=== PATIENT | female | born 1970 | race African-American/Black ===

== ENCOUNTER 2022-05-06 11:41 | Emergency (ER) | payer OTHER ==
[~2022-05-06] VITALS: Ht 170.2 cm; Wt 59.9 kg
[2022-05-06 11:55] VITALS: BP 179/105
--- NOTE | 2022-05-06 11:58 | NUR ---
PATIENT AMBULATED TO BED 9
[2022-05-06] MEDS ORDERED: ALBUTEROL SULFATE/IPRATROPIU 3 ML SOL IH ONE (12:25)
[2022-05-06 12:48] LABS: BASOPHILS % (AUTO) 0.9 % (0.0-2.0); EOSINOPHILS # (AUTO) 0.3 K/uL (0-0.4); EOSINOPHILS % (AUTO) 9.9 % (0.0-4.0); HEMATOCRIT 40.5 % (36-48); HEMOGLOBIN 13.4 g/dL (12.0-16.0); LYMPHOCYTES % (AUTO) 34.8 % (20.5-51.1); MEAN CORPUSCULAR HEMOGLOBIN 28 pg (27-31); MEAN CORPUSCULAR HGB CONC 33 g/dL (33-37); MEAN CORPUSCULAR VOLUME 85.5 fL (80-94); MONOCYTES # (AUTO) 0.3 K/uL (0.8-1.0); MONOCYTES % (AUTO) 9.7 % (1.7-9.3); NEUTROPHILS # (AUTO) 1.2 K/uL (1.8-7.7); NEUTROPHILS % (AUTO) 44.7 % (42.2-75.2); PLATELET COUNT (AUTO) 317 K/uL (140-450); RED BLOOD CELL COUNT(AUTO) 4.74 MIL/uL (4.20-5.40); RED CELL DISTRIBUTION WIDTH 14.5 % (11.6-13.7); WHITE BLOOD COUNT (AUTO) 2.8 K/uL (4.8-10.8)
[2022-05-06 13:05] LABS: ALBUMIN 3.4 g/dL (3.4-5.0); ANION GAP 14.3 (8-16); ASPARTATE AMINOTRANSFERASE 23 U/L (15-37); CARBON DIOXIDE 31.5 mmol/L (21-32); CHLORIDE 101 mmol/L (98-107); GFR ARICAN-AMERICAN 75 mL/min (>90); GLUCOSE 94 mg/dL (74-106); LIPASE 116 U/L (73-393); SODIUM SERUM 144 mmol/L (136-145); TOTAL BILIRUBIN 1.2 mg/dL (0.0-1.0); UREA NITROGEN, BLOOD 10 mg/dL (7-18)
[2022-05-06 13:07] LABS: POTASSIUM 2.8 mmol/L (3.5-5.1)
[2022-05-06] MEDS ORDERED: POTASSIUM CHLORIDE 10 MEQ TABER PO ONE ×2 (13:10→14:25)
[2022-05-06] MEDS ORDERED: MORPHINE SULFATE 4 MG/ML SYR IM ONE (13:40)
--- NOTE | 2022-05-06 14:15 | NUR ---
52F PRESENTS TO ED WITH C/O CHEST PAIN AND SOB X1 DAY, AND URINARY URGENCY X1WEEK. PT REPORTS A SHARP/TIGHT LIKE 10/10 CHEST PAIN THAT RADIATES TO UPPER BACK. PT STATES THE SOB IS DUE TO RUNNING OUT OF ALBUTEROL AT HOME. PT REPORTS TAKING TYLENOL THIS MORNING WITH NO RELIEF. PT REPORTS BEING UNABLE TO HOLD IN HER URINE, DENIES PAINFUL URINATION, FEVERS, CHILLS, OR ABD PAIN. PT PLACED ON INTEGRATION AIDE UPON ARRIVAL.
--- NOTE | 2022-05-06 14:19 | NUR ---
PT AMBULATED TO RESTROOM, URINE CUP PROVIDED.
--- NOTE | 2022-05-06 14:24 | NUR ---
PT STANDING IN RESTROOM, PT REPORTED THAT SHE IS NOT ABLE TO GIVE URINE SAMPLE. PT REPORTS SHE THINKS SHE HAS A UTI AND THAT SHE URINATED ON HERSELF. DR BRANDON AWARE. PT PROVIDED WITH WIPES. PT OFFERED CLEAN GOWN TO CHANGE IN, PT REFUSED.
--- NOTE | 2022-05-06 14:32 | NUR ---
PT AMBULATED BACK TO BED 9. NO URINE SAMPLE COLLECTED.
--- NOTE | 2022-05-06 15:10 | NUR ---
PT REFUSED IM MORPHINE, REQUESTING MORPHINE IV. DR BRANDON MADE AWARE.
--- NOTE | 2022-05-06 15:22 | NUR ---
LAB ATTEMPTED TO DRAW BLOOD. PT REPORTS SHE DOESNT WANT HER TO TRY AGAIN AND REFUSING SECOND ATTEMPT. PT IS REQUESTING AN IV, DR BRANDON AWARE
[2022-05-06 16:20] LABS: APPEARANCE,URINE CLEAR (CLEAR); BILIRUBIN,URINE 1+ (NEGATIVE); BLOOD, URINE NEGATIVE (NEGATIVE); COLOR,URINE YELLOW (YELLOW); LEUKOCYTE ESTERASE ,URINE TRACE (NEGATIVE); NITRITE, URINE NEGATIVE (NEGATIVE); UGLUCOSE NEGATIVE (NEGATIVE)
[2022-05-06] MEDS ORDERED: CEPH-588 PO (16:43)
[2022-05-06] MEDS ORDERED: PRED20TA5 PO (16:43)
[2022-05-06] MEDS ORDERED: ALBU0.0912 INH (16:43)
[2022-05-06 16:44] LABS: TRICHOMONAS,URINE None Seen /HPF (None Seen); YEAST,URINE None Seen /HPF (None Seen)
[2022-05-06] MEDS ORDERED: HYDR25TA32 PO (16:46)
[2022-05-06 17:19] VITALS: BP 110/74
--- NOTE | 2022-05-06 17:19 | NUR ---
Patient discharged with v/s stable. Written and verbal after care instructions about asthma, UTI, hyptertension given and explained. Patient alert, oriented and verbalized understanding of instructions. Ambulatory with steady gait. All questions addressed prior to discharge. ID band removed. Patient advised to follow up with PMD. Rx of Albuterol Sulfate, Keflex, Hydrocholorothiazide, Prednisone given. Patient educated on indication of medication including possible reaction and side effects. Opportunity to ask questions provided and answered.
== END 2022-05-06 17:19 | disposition home or self-care (01) ==
LOC: MED 11:41
DX: R07.89 Other chest pain (principal); N39.0 Urinary tract infection, site not specified; E87.6 Hypokalemia; I10 Essential (primary) hypertension; F41.9 Anxiety disorder, unspecified; J45.909 Unspecified asthma, uncomplicated; Z88.5 Allergy status to narcotic agent; Z88.8 Allergy status to other drugs, medicaments and biological substances; Z79.899 Other long term (current) drug therapy
CPT/HCPCS: 36415; 71045; 80053; 81001; 83690; 84484; 85025; 86703; 87086; 93005; 94640; 99285; Q0092; J2270

== ENCOUNTER 2022-05-22 17:14 | Emergency (ER) | payer OTHER ==
[~2022-05-22] VITALS: Ht 170.2 cm; Wt 66.7 kg
[~2022-05-22 17:14] MED LIST: ALBU0.0912 INH; CEPH-588 PO; HYDR25TA32 PO; PRED20TA5 PO
[2022-05-22 17:39] VITALS: BP 147/106
[2022-05-22 18:37] LABS: BASOPHILS % (AUTO) 0.1 % (0.0-2.0); EOSINOPHILS % (AUTO) 0.1 % (0.0-4.0); HEMATOCRIT 36.1 % (36-48); HEMOGLOBIN 11.6 g/dL (12.0-16.0); MEAN CORPUSCULAR HEMOGLOBIN 27 pg (27-31); MEAN CORPUSCULAR HGB CONC 32 g/dL (33-37); MEAN CORPUSCULAR VOLUME 84.9 fL (80-94); MONOCYTES # (AUTO) 0.6 K/uL (0.8-1.0); MONOCYTES % (AUTO) 6.1 % (1.7-9.3); NEUTROPHILS # (AUTO) 6.5 K/uL (1.8-7.7); NEUTROPHILS % (AUTO) 71.7 % (42.2-75.2); PLATELET COUNT (AUTO) 305 K/uL (140-450); RED BLOOD CELL COUNT(AUTO) 4.25 MIL/uL (4.20-5.40); RED CELL DISTRIBUTION WIDTH 14.5 % (11.6-13.7)
[2022-05-22 19:03] LABS: ALBUMIN 3.2 g/dL (3.4-5.0); ANION GAP 12.5 (8-16); ASPARTATE AMINOTRANSFERASE 14 U/L (15-37); CHLORIDE 103 mmol/L (98-107); GFR ARICAN-AMERICAN 75 mL/min (>90); GLUCOSE 95 mg/dL (74-106); POTASSIUM 3.5 mmol/L (3.5-5.1); SODIUM SERUM 144 mmol/L (136-145); TOTAL BILIRUBIN 0.7 mg/dL (0.0-1.0); UREA NITROGEN, BLOOD 19 mg/dL (7-18)
[2022-05-22] MEDS ORDERED: ACETAMINOPHEN 325 MG TAB PO ONE (19:25)
--- NOTE | 2022-05-22 19:40 | NUR ---
RAYO DIXON examining patient.
--- NOTE | 2022-05-22 20:01 | NUR ---
COVID-19 and flu swabs collected and sent to lab.
[2022-05-22] MEDS ORDERED: OMEP20EC11 PO ×2 (20:08→20:09)
[2022-05-22] MEDS ORDERED: HYDR-4004 PO ×2 (20:08→20:09)
[2022-05-22] MEDS ORDERED: ALBU0.0912 IH ×2 (20:08→20:09)
[2022-05-22] MEDS ORDERED: NITR100C7 PO ×2 (20:08→20:09)
[2022-05-22] MEDS ORDERED: PROM118S5 PO ×2 (20:08→20:09)
[2022-05-22] MEDS ORDERED: ACET-9882 PO ×2 (20:08→20:09)
[2022-05-22] MEDS ORDERED: SERT50TA PO ×2 (20:08→20:09)
[2022-05-22 20:33] VITALS: BP 135/92
--- NOTE | 2022-05-22 20:33 | NUR ---
Patient discharged with v/s stable. Written and verbal after care instructions given and explained. Patient alert, oriented and verbalized understanding of instructions. Ambulatory with steady gait. All questions addressed prior to discharge. ID band removed. Patient advised to follow up with PMD. Rx of Tylenol, Proventil, Hydrochlorothiazine, Macrobid, Prolosec, Promethazine and Zoloft given. Patient educated on indication of medication including possible reaction and side effects. Opportunity to ask questions provided and answered.
--- NOTE | 2022-05-22 20:35 | NUR ---
Called datawarehouse developer for [facility]
[2022-05-22 21:05] LABS: APPEARANCE,URINE SL CLOUDY (CLEAR); BILIRUBIN,URINE NEGATIVE (NEGATIVE); BLOOD, URINE NEGATIVE (NEGATIVE); COLOR,URINE AMBER (YELLOW); LEUKOCYTE ESTERASE ,URINE NEGATIVE (NEGATIVE); NITRITE, URINE NEGATIVE (NEGATIVE); UGLUCOSE NEGATIVE (NEGATIVE)
== END 2022-05-22 20:33 | disposition home or self-care (01) ==
LOC: MED 17:14
DX: B34.9 Viral infection, unspecified (principal); Z20.822 Contact with and (suspected) exposure to COVID-19; R05.9 Cough, unspecified; I10 Essential (primary) hypertension; F32.9 Major depressive disorder, single episode, unspecified; J45.909 Unspecified asthma, uncomplicated; Z51.81 Encounter for therapeutic drug level monitoring; Z88.5 Allergy status to narcotic agent; Z88.8 Allergy status to other drugs, medicaments and biological substances; Z79.899 Other long term (current) drug therapy
CPT/HCPCS: 36415; 71045; 80053; 81003; 84484; 85025; 85379; 93005; 99285

== ENCOUNTER 2022-06-14 10:28 | Emergency (ER) | payer OTHER ==
[~2022-06-14] VITALS: Ht 162.6 cm; Wt 65.8 kg
[~2022-06-14 10:28] MED LIST changes: +ACET-9882 PO; +ALBU0.0912 IH; +HYDR-4004 PO; +NITR100C7 PO; +OMEP20EC11 PO; +PROM118S5 PO; +SERT50TA PO
[2022-06-14 10:45] VITALS: BP 151/96
--- NOTE | 2022-06-14 10:48 | NUR ---
Pt ambulated to bed 03.
--- NOTE | 2022-06-14 11:06 | NUR ---
iv established to left wrist with 20g. blood drawn and sent to lab
--- NOTE | 2022-06-14 11:15 | NUR ---
52F presents to ED with c/o chest pain, vomiting blood and bloody stool x3 days. Pt reports a constant sharp tight like, 9/10 chest pain that radiates to back. Pt denies dizziness and SOB. Pt changed into gown and placed on bedside monitor.
[2022-06-14 11:31] LABS: PROTHROMBIN TIME 9.9 secs (10.8-13.4)
[2022-06-14 11:33] LABS: ALBUMIN 2.9 g/dL (3.4-5.0); ANION GAP 11.6 (8-16); CARBON DIOXIDE 29.1 mmol/L (21-32); CREATININE 0.8 mg/dL (0.6-1.3); POTASSIUM 3.7 mmol/L (3.5-5.1); TOTAL BILIRUBIN 0.5 mg/dL (0.0-1.0)
[2022-06-14 11:36] LABS: BASOPHILS % (AUTO) 1.1 % (0.0-2.0); EOSINOPHILS # (AUTO) 0.1 K/uL (0-0.4); EOSINOPHILS % (AUTO) 5.3 % (0.0-4.0); HEMATOCRIT 32.8 % (36-48); HEMOGLOBIN 10.7 g/dL (12.0-16.0); LYMPHOCYTES # (AUTO) 0.9 K/uL (2.5-16.5); MEAN CORPUSCULAR HEMOGLOBIN 28 pg (27-31); MEAN CORPUSCULAR HGB CONC 33 g/dL (33-37); MEAN CORPUSCULAR VOLUME 84.5 fL (80-94); MONOCYTES # (AUTO) 0.3 K/uL (0.8-1.0); MONOCYTES % (AUTO) 11.6 % (1.7-9.3); NEUTROPHILS # (AUTO) 1.4 K/uL (1.8-7.7); PLATELET COUNT (AUTO) 295 K/uL (140-450); RED BLOOD CELL COUNT(AUTO) 3.88 MIL/uL (4.20-5.40); RED CELL DISTRIBUTION WIDTH 15.1 % (11.6-13.7); WHITE BLOOD COUNT (AUTO) 2.7 K/uL (4.8-10.8)
[2022-06-14 11:38] LABS: LIPASE 582 U/L (73-393)
[2022-06-14] MEDS ORDERED: MORPHINE SULFATE 4 MG/ML SYR IVP ONE (11:45)
[2022-06-14] MEDS ORDERED: PANTOPRAZOLE 40 MG INJ VIAL IVP ONE (11:45)
[2022-06-14] MEDS ORDERED: ONDANSETRON 4 MG/2 ML VIAL IVP ONE (12:00)
--- NOTE | 2022-06-14 12:57 | NUR ---
Female Plater [employer] accompanied female patient for Rectal Exam.
[2022-06-14 13:24] LABS: APPEARANCE,URINE CLEAR (CLEAR); BILIRUBIN,URINE NEGATIVE (NEGATIVE); BLOOD, URINE NEGATIVE (NEGATIVE); COLOR,URINE YELLOW (YELLOW); LEUKOCYTE ESTERASE ,URINE NEGATIVE (NEGATIVE); NITRITE, URINE NEGATIVE (NEGATIVE); PH,URINE 7.5 (5.0-9.0); UGLUCOSE NEGATIVE (NEGATIVE)
[2022-06-14] MEDS ORDERED: OMEP40EC23 PO (13:34)
[2022-06-14] MEDS ORDERED: MICO45CR20 VG (13:34)
[2022-06-14] MEDS ORDERED: TRAM-748 PO (13:34)
[2022-06-14 13:45] VITALS: BP 147/95
--- NOTE | 2022-06-14 13:47 | NUR ---
Patient discharged with v/s stable. Written and verbal after care instructions given and explained for Peptic Ulcer, Peptic Ulcer Eating Plan, Vaginal Yeast Infection. Patient alert, oriented and verbalized understanding of instructions. Ambulatory with steady gait. All questions addressed prior to discharge. ID band removed. Patient advised to follow up with PMD. Rx of Monistat, Tramadol, Prilosec given. Patient educated on indication of medication including possible reaction and side effects. Opportunity to ask questions provided and answered. Copies of RAD, blood work, urinalysis given to patient.
== END 2022-06-14 13:47 | disposition home or self-care (01) ==
LOC: MED 10:28
DX: K92.0 Hematemesis (principal); K27.9 Peptic ulcer, site unspecified, unspecified as acute or chronic, without hemorrhage or perforation; R07.9 Chest pain, unspecified; J45.909 Unspecified asthma, uncomplicated; I10 Essential (primary) hypertension; Z79.899 Other long term (current) drug therapy; Z88.5 Allergy status to narcotic agent; Z88.8 Allergy status to other drugs, medicaments and biological substances
CPT/HCPCS: 36415; 71045; 80053; 81003; 83690; 83880; 84484; 85025; 85610; 85730; 93005; 96374; 96375; 99285; C9113; J2270; J2405

== ENCOUNTER 2022-06-19 15:36 | Emergency (ER) | payer OTHER ==
[~2022-06-19] VITALS: Ht 170.2 cm; Wt 67.1 kg
[~2022-06-19 15:36] MED LIST changes: +MICO45CR20 VG; +OMEP40EC23 PO; +TRAM-748 PO
[2022-06-19 15:37] VITALS: BP 179/106
[2022-06-19] MEDS ORDERED: PANTOPRAZOLE 40 MG TABEC PO ONE (18:55)
[2022-06-19] MEDS ORDERED: ALUMINUM HYD/MAG/SIMETHICONE 30 ML UDC PO ONE (18:55)
[2022-06-19] MEDS ORDERED: ONDANSETRON 4 MG ODT PO ONE (18:55)
--- NOTE | 2022-06-19 19:24 | NUR ---
LEASE OUT MAN CALLED OUT FOR PT IN THE LOBBY WITH NO ANSWER
--- NOTE | 2022-06-19 19:40 | NUR ---
PATIENT CALLED TO ADMINISTER MEDICATION, NO RESPONSE PATIENT ELOPED FROM FACILITY. DISCHARGE INSTRUCTIONS NOT GIVEN TO PATIENT. DR. KEANE NOTIFIED.
== END 2022-06-19 19:40 | disposition left against medical advice (07) ==
LOC: MED 15:36
DX: K21.9 Gastro-esophageal reflux disease without esophagitis (principal); E11.9 Type 2 diabetes mellitus without complications; I10 Essential (primary) hypertension; M79.7 Fibromyalgia; K25.9 Gastric ulcer, unspecified as acute or chronic, without hemorrhage or perforation; Z79.4 Long term (current) use of insulin; Z79.899 Other long term (current) drug therapy; Z79.1 Long term (current) use of non-steroidal anti-inflammatories (NSAID); Z88.8 Allergy status to other drugs, medicaments and biological substances
CPT/HCPCS: 93005; 99283; Q0162